=== PATIENT | female | born 1960 | race Caucasian/White ===

== ENCOUNTER 2016-10-03 08:26 | Emergency (ER) | payer BC ==
--- NOTE | 2016-10-03 09:01 | UC ---
Respiratory Complaint HPI - HPI Summary HPI Summary: cough for 1.5 weeks. History of asthma, uses daily QVar. Cough will keep her up at night. No fever. No sinus congestion or ST at present. Fever for first few days only. recently ill with same illness. - History of Current Complaint Chief Complaint: UCRespiratory Stated Complaint: COUGH Time Seen by Provider: 10/03/16 08:44 Hx Obtained From: Patient Hx Last Menstrual Period: 1997 Onset/Duration: Gradual Onset, Lasting Weeks - 1.5 Timing: Constant Severity Initially: Mild Severity Currently: Mild Character: Cough: Nonproductive Aggravating Factors: Exertion, Recumbent Position Alleviating Factors: Nothing Associated Signs And Symptoms: Positive: Chills, URI, Hoarseness. Negative: Wheezing, Hemoptysis, Nasal Congestion, Sinus Discomfort - Risk Factors Pulmonary Embolism Risk Factors: Negative Cardiac Risk Factors: Negative Pseudomonas Risk Factors: Negative Tuberculosis Risk Factors: Negative - Allergies/Home Medications Allergies/Adverse Reactions: Allergies Allergy/AdvReac Type Severity Reaction Status Date / Time Azithromycin Allergy Headache Verified 10/03/16 08:41 Levofloxacin [From Levaquin] Allergy Altered Verified 10/03/16 08:42 Mental Status Penicillins Allergy Hives Verified 10/03/16 08:41 Sulfa Antibiotics Allergy See Comment Verified 10/03/16 08:41 dairy Allergy Headache Uncoded 10/03/16 08:43 environmental Allergy Wheezing Uncoded 10/03/16 08:40 Home Medications: Home Medications Albuterol HFA INHALER* [Ventolin HFA Inhaler*] 2 puff INH Q4H PRN 10/03/16 [ History Confirmed 10/03/16] Beclomethasone Dipropionate [Qvar] 2 puff IN QAM PRN 10/03/16 [History Confirmed 10/03/16] Cholecalciferol [Vitamin D] 1,000 unit PO DAILY 10/03/16 [History Confirmed ] Cough Suppressant 1 dose PO QPM PRN 10/03/16 [History Confirmed 10/03/16] Guaifenesin [Guaifenesin ER] 1,200 mg PO DAILY PRN 10/03/16 [History Confirmed 10/03/16] Levothyroxine TAB* [Synthroid 100 MCG TAB*] 100 mcg PO DAILY 10/03/16 [History Confirmed 10/03/16] PMH/Surg Hx/FS Hx/Imm Hx Respiratory History Of: Reports: Asthma - Surgical History Surgical History: Yes Surgery Procedure, Year, and Place: C1-T2 laminectomies 02/2016 [place] - Family History Known Family History: Positive: Respiratory Disease - asthma - Social History Occupation: Employed Full-time Lives: With Family Alcohol Use: Rare Substance Use Type: None Smoking Status (MU): Never Smoked Tobacco Review of Systems Constitutional: Negative Skin: Negative Eyes: Negative ENT: Sore Throat - from cough Respiratory: Cough Cardiovascular: Negative Gastrointestinal: Negative Genitourinary: Negative Motor: Negative Neurovascular: Negative Musculoskeletal: Negative Neurological: Negative Psychological: Negative All Other Systems Reviewed And Are Negative: Yes Physical Exam Triage Information Reviewed: Yes Appearance: Well-Appearing, No Pain Distress, Well-Nourished Vital Signs: Initial Vital Signs Temp 97.5 F 10/03/16 08:32 Pulse 76 10/03/16 08:32 Resp 20 10/03/16 08:32 BP 124/71 10/03/16 08:32 Pulse Ox 98 10/03/16 08:32 Vital Signs Reviewed: Yes Eye Exam: Normal Eyes: Positive: Conjunctiva Clear ENT: Positive: Hearing grossly normal, Pharynx normal, TM dull - bilat fluid levels. Negative: Tonsillar swelling, Tonsillar exudate, Trismus, Muffled/ hoarse voice Neck exam: Normal Neck: Positive: Supple Respiratory Exam: Normal Respiratory: Positive: Lungs clear, Normal breath sounds, No respiratory distress, No accessory muscle use Cardiovascular Exam: Normal Musculoskeletal Exam: Normal Neurological Exam: Normal Psychological Exam: Normal Skin Exam: Normal Diagnostic Evaluation - Laboratory O2 Sat by Pulse Oximetry: 98 Respiratory Course/Dx - Differential Dx/Diagnosis Differential Diagnosis/HQI/PQRI: Bronchitis, Lower Resp Infection Provider Diagnoses: URI Discharge - Discharge Plan Condition: Stable Disposition: HOME Prescriptions: Levalbuterol 1.25MG/0.5ML NEB* [Xopenex 1.25 MG/0.5 ML NEB.MIGUELITO*] 1.25 mg INH Q4H PRN #1 box PRN Reason: Shortness Of Breath Patient Education Materials: Upper Respiratory Infection (ED) Referrals: Claudine Molina [Primary Care Provider] -
[2016-10-03 09:03] VITALS: BP 124/71
== END 2016-10-03 09:20 | disposition home or self-care (01) ==
LOC: UCCORT 08:26 → MERGE 08:26 → UCCORT 09:20
DX: J06.9 Acute upper respiratory infection, unspecified (principal); Z88.1 Allergy status to other antibiotic agents; Z88.0 Allergy status to penicillin; Z88.2 Allergy status to sulfonamides
CPT/HCPCS: 99202; G0463

== ENCOUNTER 2016-10-10 08:21 | Emergency (ER) | payer BC ==
[2016-10-10 08:49] VITALS: BP 109/62
--- NOTE | 2016-10-10 09:43 | UC ---
Respiratory Complaint HPI - HPI Summary HPI Summary: cough, headache with cough, chest tightness and sores on roof of her mouth. was seen here 10/03/16 and given more xopenex for her nebulizer. Uses qvar. Has been doing nebs or inhaler every four hours and doesn't feel improvement. No fever. No sputum. Hx asthma since age 16, but it has been 8 years since asthma has flared. 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 Pt had a flu shot this year. had a similar illness before 10/03/16 and got better without antibiotic Had secondhand smoke as a child, but pt has never smoked. - History of Current Complaint Chief Complaint: UCGeneralIllness Stated Complaint: WHEEZING,COUGH,HEADACHE Time Seen by Provider: 10/10/16 09:41 Hx Obtained From: Patient Hx Last Menstrual Period: 1997 Onset/Duration: Gradual Onset, Lasting Weeks, Still Present Timing: Constant Severity Initially: Moderate Severity Currently: Moderate Pain Intensity: 3 Pain Scale Used: 0-10 Numeric Character: Cough: Productive - yellow Aggravating Factors: Nothing Alleviating Factors: Bronchodilator Associated Signs And Symptoms: Positive: Dyspnea, Wheezing, URI, Nasal Congestion. Negative: Fever, Chills, Pleuritic Chest Pain Related History: Seasonal Allergies - Risk Factors Pulmonary Embolism Risk Factors: Negative Pseudomonas Risk Factors: Negative Tuberculosis Risk Factors: Negative - Allergies/Home Medications Allergies/Adverse Reactions: Allergies Allergy/AdvReac Type Severity Reaction Status Date / Time Penicillins Allergy Severe Hives Verified 03/21/16 21:22 Azithromycin Allergy Intermediate See Comment Verified 03/21/16 21:22 [From Zithromax Z-Augustus] Levofloxacin [From Levaquin] Allergy Altered Verified 10/03/16 08:42 Mental Status Sulfa Antibiotics Allergy See Comment Verified 10/03/16 08:41 dairy Allergy Headache Uncoded 10/03/16 08:43 environmental Allergy Wheezing Uncoded 10/03/16 08:40 PMH/Surg Hx/FS Hx/Imm Hx Endocrine History Of: Reports: Hypothyroidism Denies: Diabetes Respiratory History Of: Reports: Asthma - Surgical History Surgical History: Yes Surgery Procedure, Year, and Place: C- section x3. hysterectomy. parathyroidectomy. C2-T2 Lamenectomy - Family History Known Family History: Positive: Respiratory Disease - COPD in father who smoked Negative: Blood Disorder - no DVT's or PE's - Social History Occupation: Employed Full-time Lives: With Family Alcohol Use: Rare Substance Use Type: None Smoking Status (MU): Never Smoked Tobacco - Immunization History Most Recent Influenza Vaccination: Fall 2014 Most Recent Tetanus Shot: 3 years ago Review of Systems Constitutional: Fatigue Skin: Negative Eyes: Negative ENT: Sore Throat Respiratory: Shortness Of Breath, Cough Cardiovascular: Negative Gastrointestinal: Negative Genitourinary: Negative Motor: Negative Neurovascular: Negative Musculoskeletal: Negative Neurological: Negative Psychological: Negative All Other Systems Reviewed And Are Negative: Yes Physical Exam Triage Information Reviewed: Yes Appearance: No Pain Distress, Well-Nourished, Ill-Appearing Vital Signs: Initial Vital Signs Temp 99.0 F 10/10/16 08:43 Pulse 70 10/10/16 08:43 Resp 16 10/10/16 08:43 BP 109/62 10/10/16 08:43 Pulse Ox 95 10/10/16 08:43 Vital Signs Reviewed: Yes Eyes: Positive: Conjunctiva Clear ENT: Positive: Pharyngeal erythema, TMs normal Neck: Positive: Supple, Nontender, No Lymphadenopathy Respiratory: Positive: Lungs clear, No respiratory distress, Decreased breath sounds Cardiovascular: Positive: RRR, No Murmur, Pulses Normal Musculoskeletal: Positive: Strength Intact, ROM Intact, Other: - no calf tenderness Neurological: Positive: Alert, Muscle Tone Normal Psychological Exam: Normal Skin Exam: Normal UC Diagnostic Evaluation - Laboratory O2 Sat by Pulse Oximetry: 95 Respiratory Course/Dx - Course Course Of Treatment: rapid A neg - Differential Dx/Diagnosis Differential Diagnosis/HQI/PQRI: Asthma, Bronchitis, Lower Resp Infection, Sinusitis Provider Diagnoses: acute asthmatic exacerbation Discharge - Discharge Plan Condition: Stable Disposition: HOME Prescriptions: predniSONE TAB* [Deltasone TAB*] 40 mg PO DAILY #10 tab Patient Education Materials: Bronchospasm (ED) Referrals: Lynn WALSH,Winter Kramer [Primary Care Provider] - (definite follow up with your doctor on 10/15/16)
== END 2016-10-10 10:33 | disposition home or self-care (01) ==
LOC: UCCORT 08:21
DX: J45.901 Unspecified asthma with (acute) exacerbation (principal); Z88.0 Allergy status to penicillin; Z88.1 Allergy status to other antibiotic agents; Z88.2 Allergy status to sulfonamides
CPT/HCPCS: 87651; 99212; G0463

== ENCOUNTER 2017-09-20 09:42 | Emergency (ER) | payer BC ==
--- NOTE | 2017-09-20 10:09 | UC ---
Lower Extremity/Ankle HPI - HPI Summary HPI Summary: 57 year old female presents with complains of left big toe pain/swelling. - History of Current Complaint Stated Complaint: LEFT FOOT (GOUT) Time Seen by Provider: 09/20/17 10:08 Hx Last Menstrual Period: 1997 - Risk Factors Gout Risk Factors: Negative DVT Risk Factors: Negative Septic Arthritis Risk Factor: Negative - Allergies/Home Medications Allergies/Adverse Reactions: Allergies Allergy/AdvReac Type Severity Reaction Status Date / Time Penicillins Allergy Severe Hives Verified 09/20/17 10:03 Azithromycin Allergy Intermediate See Comment Verified 09/20/17 10:03 [From Zithromax Z-Jose] Levofloxacin [From Levaquin] Allergy Altered Verified 09/20/17 10:03 Mental Status Sulfa Antibiotics Allergy See Comment Verified 09/20/17 10:03 dairy Allergy Headache Uncoded 09/20/17 10:03 environmental Allergy Wheezing Uncoded 09/20/17 10:03 Home Medications: Home Medications Cholecalciferol [Vitamin D3 Ultra Potency] 50,000 unit PO WE 09/20/17 [History Confirmed 09/20/17] Estradiol 0.025 MG PATCH (NF) 1 patch TRANSDERM SEE INSTRUCTIONS 09/20/17 [ History Confirmed 09/20/17] Ibuprofen TAB* [Advil TAB*] 400 mg PO Q6H PRN 09/20/17 [History Confirmed ] PMH/Surg Hx/FS Hx/Imm Hx - Surgical History Surgical History: Yes Surgery Procedure, Year, and Place: C- section x3. hysterectomy. parathyroidectomy. C2-T2 Lamenectomy - Family History Known Family History: Positive: None, Respiratory Disease - COPD in father who smoked Negative: Blood Disorder - no DVT's or PE's - Social History Alcohol Use: Rare Substance Use Type: None Smoking Status (MU): Never Smoked Tobacco - Immunization History Most Recent Influenza Vaccination: Fall 2014 Most Recent Tetanus Shot: 3 years ago Review of Systems Constitutional: Negative Skin: Negative Eyes: Negative ENT: Negative Respiratory: Negative Cardiovascular: Negative Gastrointestinal: Negative Genitourinary: Negative Motor: Negative Neurovascular: Negative Musculoskeletal: Other: - left big toe pain/swelling Neurological: Negative Psychological: Negative All Other Systems Reviewed And Are Negative: Yes Physical Exam Triage Information Reviewed: Yes Vital Signs Reviewed: Yes Eye Exam: Normal ENT Exam: Normal Dental Exam: Normal Neck exam: Normal Neck: Positive: 1 Respiratory Exam: Normal Cardiovascular Exam: Normal Abdominal Exam: Normal Musculoskeletal: Positive: Other: - left big toe pain/swelling Neurological Exam: Normal Psychological Exam: Normal Skin Exam: Normal Lower Extremity Course/Dx - Differential Dx/Diagnosis Provider Diagnoses: left big toe gout Discharge - Discharge Plan Condition: Stable Disposition: HOME Prescriptions: Methylprednisolone [Medrol Dosepak 4 MG*] 4 mg PO .SEE JOSE INSTRUCTION #21 tab Patient Education Materials: Low Purine Diet (ED), Gout (ED) Referrals: Lynn WALSH,Winter Kramer [Primary Care Provider] -
[2017-09-20 10:10] VITALS: BP 115/70
--- NOTE | 2017-09-20 10:50 | RAD ---
HISTORY: First great toe inflammation COMPARISONS: None VIEWS: 3, Frontal, lateral, and oblique views of the first digit of the left foot FINDINGS: BONE DENSITY: Normal. BONES: There is no displaced fracture. There is a sharply marginated juxta-articular erosion of the lateral aspect of the distal first metatarsal at the first MTP joint. JOINTS: There is mild osteoarthritis of the first MTP and interphalangeal joints. ALIGNMENT: There is no dislocation. SOFT TISSUES: Unremarkable. OTHER FINDINGS: None. IMPRESSION: 1. MILD OSTEOARTHRITIS. 2. 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 3. NO ACUTE OSSEOUS INJURY. IF SYMPTOMS PERSIST, RECOMMEND REPEAT IMAGING
== END 2017-09-20 11:14 | disposition home or self-care (01) ==
LOC: UCCORT 09:42
DX: M10.9 Gout, unspecified (principal); Z88.0 Allergy status to penicillin; Z88.1 Allergy status to other antibiotic agents; Z88.2 Allergy status to sulfonamides; Z91.018 Allergy to other foods; Z91.048 Other nonmedicinal substance allergy status
CPT/HCPCS: 81003; 99212; G0463